=== PATIENT | female | born 2005 | race Two or more races ===

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

== ENCOUNTER 2025-05-12 15:49 | Emergency (ER) | payer MEDICAID ==
[~2025-05-12] VITALS: Ht 162.6 cm; Wt 69.0 kg
[~2025-05-12 15:49] MED LIST changes: +MAGNSOL17 OR
[2025-05-12 15:50] VITALS: BP 128/89; PULSE 96; RESP 15; TEMP 98.2; O2SAT 97
--- NOTE | 2025-05-12 16:49 | DVH ---
XY R 1ST FINGER XRAY INDICATION: r thumb injury TECHNICAL DATA: Frontal view of the right hand and lateral and oblique views of the right thumb were obtained. COMPARISON: None FINDINGS: No fracture is identified. Joint spaces are maintained. Alignment is anatomic. Soft tissues are withi n normal limits. IMPRESSION: No acute fracture radiographs of the right thumb.
--- NOTE | 2025-05-12 17:29 | ED.PDOC ---
Musculoskeletal HPI Comments HPI: Poor Historian. 20-year-old female presents to emergency department for evaluation of right distal thumb injury. She said she was trying to prevent her car door from shutting too hard so she put her hand and there which slammed the base of her nail bed. There is noted some bruising and some decreased range of motion secondary to pain. Patient is neurovascularly intact in the affected hand. Denies any other injuries fall or trauma or complaints. The nail bed is intact. No bleeding. No apparent swelling. Past Medical History: Denies any Past Surgical History: Denies any REVIEW OF SYSTEMS: CONSTITUTIONAL: Denies acute: fever, diaphoresis, chills, generalized weakness. HEAD: Denies acute: headache, photophobia Eyes: Denies acute: Double vision, vision loss, eye pain, eye discharge. EARS: Denies acute: tinnitus, hearing loss, ear discharge, ear pain, THROAT: Denies acute: sore throat, swelling, difficulty swallowing , pain with swallowing, change in voice. NECK: Denies acute: neck pain, neck swelling, stiff neck. HEART: Denies acute : chest pain, palpitations, LUNGS: Denies acute: SOB, wheezing, cough, hemoptysis ABDOMEN: Denies acute: abdominal pain, Nausea, Vomiting, diarrhea, melena , hematemesis, hematochezia SKIN: Denies acute: rash, redness, lesions, itchiness. EXTREMITIES: Denies acute: calf pain, numbness, tingling, weakness, denies pain in extremity. Denies acute: Low back pain. Neuro: Denies acute: focal neurological deficit, motor or sensory focal neurological deficit, tremors, seizure like activity, confusion, dizziness, change in mental status, loss of bowel or bladder function, cauda equina like symptoms. : Denies acute: dysuria, hematuria, flank pain, increase in urinary frequency. PSYCH: Denies acute: hallucination, suicidal ideation, homicidal ideation. FEMALE: Denies acute: abnormal vaginal bleeding, foul odor, unusual discharge. PHYSICAL EXAM: General: ----no----acute distress, awake and alert. Head: normocephalic, atraumatic. Neck: supple, trachea is midline, no swelling. Throat: Normal phonation. Eyes:, no erythema, no purulent discharge, no proptosis, no icterus. Heart: regular rate, regular rhythm, no significant murmur appreciated. Lungs: no apparent respiratory distress, Able to speak in full sentences. No wheezing, no rhonchi, no crackles. No stridors Clear to auscultation bilaterally. Abdomen: non tender to palpation, non distended, soft, no guarding, no rebound, + bowel sounds. Neuro: Awake, Alert, oriented to name, self, situation, follows commands GCS=15. Speech is normal. Skin: no petechia, no purpura, no cyanosis, non-pale, not jaundice. Lower extremities: --no - Pitting edema no deformity, no focal swelling, no calf TTP. Makes eye contact. moves all four extremities. Face: no apparent facial droop. Ambulating in the ED independently. ED COURSE: DISCLAIMER: This medical document was created using an electronic medical record system with voice recognition software and computerized dictation system. Although this do cument has been carefully reviewed, there might still be some phonetic and typographical errors. Occasional wrong-word or "sound-alike" substitutions may have occurred due to the inherent limitations of voice recognition software. These areas are purely typographical due to imperfections of the software programs and do not reflect any compromise in the patient's medical care. Please read the chart carefully and recognize, using context, where these substitutions have occurred. Chief Complaint: Upper Extremity Time Seen by MD: 16:14 Reviewed Notes: Allergies Allergies: Coded Allergies: NO KNOWN ALLERGIES (Unverified , 03/28/23) Home Meds Active Scripts Magnesium Citrate (Citrate Of [place]) Fitch Sussy, 300 ML OR ONCE, #300 ML Prov:REGINE ACUÑA 06/15/23 Baclofen (Baclofen) 10 Mg Tab, 1 TAB PO BID, #10 TAB as needed for muscle spasm Prov:KUNZ,NORALDA Q MAIL READER 03/28/23 Ibuprofen Micronized (Ibuprofen) 600 Mg Tab, 1 TAB PO Q8HR, #20 TAB as needed for pain Prov:KUNZ,NORALDA Q MAIL READER 03/28/23 Metronidazole (Flagyl) 500 Mg Tab, 1 TAB PO TID for 10 Days, #30 TAB Prov:KUNZ,NORALDA Q MAIL READER 03/28/23 Doxycycline Hyclate (Doxycycline Hyclate) 100 Mg Cap, 100 MG PO BID for 10 Days, #20 CAP Prov:PASCUAL KUNZ MAIL READER 03/28/23 Information Source: Patient Mode of Arrival: Ambulatory Location: Right Past Medical History PAST MEDICAL HISTORY: Denies Surgical History: Denies all surgeries BAND MANAGER History: No Pertinent BAND MANAGER History Was a procedure done? Was a procedure done?: No X-Ray, Labs, Meds, VS Vital Signs Date Time Temp Pulse Resp B/P (MAP) Pulse Ox O2 Delivery O2 Flow Rate FiO2 05/12/25 15:50 98.2 96 15 128/89 97 98.2 Time of 1ST Reevaluation: 17:37 Reevaluation 1ST: Unchanged Patient Education/Counseling: Diagnosis, Treatment Family Education/Counseling: Other Departure 1 Departure Time of Disposition: 17:35 Impression: Primary Impression: Contusion of right thumb Disposition: 01 HOME / SELF CARE / HOMELESS Condition: Stable Additional Instructions: Additional instructions: Please read all instructions provided in this packet carefully. You MUST follow-up with your primary care/family doctor in 1 to 2 days. If you are unable to see your primary care/family doctor, please return to our emergency room for re-assessment and re-evaluation in 1 to 2 days. Return to the emergency room here in our facility or to the nearest ER [facility] if your symptoms change or worsen. CONSULTATIONS: you MUST Follow-up for consultation as soon as possible with: --orthopedic doctor as needed. You MUST call the consultants office yourself to make an appointment. You may need to arrange that through your insurance and/or your primary/family doctor. If you are unable to see the service consultant in 1 to 2 days, you must return to our emergency room (or any other ER of your choice) for re-assessment and re- evaluation. Adequate fluid hydration. Use [id number] Tylenol ibuprofen with food as instructed for pain control. Although you have been discharged from the Emergency Department, this does not mean that you have a "clean bill of health". No definitive diagnosis for your symptoms has been made today. It is possible that you are in the process of developing a serious illness. This is why you must return to the ED without fail if any new or worsening symptoms develop. Below is a copy of your radiological report for follow up: [facility] [address] [facility] [address] Ph: [phone] DIAGNOSTIC IMAGING Diagnostic Imaging Report : [id number] Signed PATIENT: ZACHARY FUENTES ACCT: [id number] UNIT: [id number] : 2005 LOC: ER ROOM / BED: / AGE / SEX: 20 / F ADM STATUS: REG ER SERVICE 1614 ORDERING PHYSICIAN: KIMMIE ESCOBAR DO PROCEDURE(s): RFIN1 - R 1ST FINGER XRAY REASON: r thumb injury ORDER NUMBER(s): [id number], ACCESSION NUMBER(s): [id number] XY R 1ST FINGER XRAY INDICATION: r thumb injury TECHNICAL DATA: Frontal view of the right hand and lateral and oblique views of the right thumb were obtained. COMPARISON: None FINDINGS: No fracture is identified. Joint spaces are maintained. Alignment is anatomic. Soft tissues are within normal limits. IMPRESSION: No acute fracture radiographs of the right thumb. ATED BY: JONATHAN VENEGAS MD DICTATED DATE/TIME: 05/12/25 164 SIGNED BY: JONATHAN VENEGAS MD SIGNED DATE/TIME: 05/12/25 164 CC: Discharged With: Self I personally scribed for KIMMIE ESCOBAR DO ([email or web address]) on 05/12/25 at 17:42. Electronically submitted by Summer Walters ([facility]). KIMMIE ESCOBAR DO May 12, 2025 17:29
== END 2025-05-12 18:36 | disposition home or self-care (01) ==
LOC: ER 15:49
DX: S60.011A Contusion of right thumb without damage to nail, initial encounter (principal); X58.XXXA Exposure to other specified factors, initial encounter; Y24.9XXA Unspecified firearm discharge, undetermined intent, initial encounter; Y93.89 Activity, other specified; Y92.89 Other specified places as the place of occurrence of the external cause; Y99.8 Other external cause status
CPT/HCPCS: 73140